=== PATIENT | male | born 1975 | race Caucasian/White ===

== ENCOUNTER 2020-07-16 12:19 | Emergency (ER) | payer OTHER ==
[~2020-07-16] VITALS: Ht 177.8 cm; Wt 68.0 kg
== END 2020-07-16 17:45 | disposition home or self-care (01) ==
LOC: ED 12:19
DX: T40.411A Poisoning by fentanyl or fentanyl analogs, accidental (unintentional), initial encounter (principal); F17.200 Nicotine dependence, unspecified, uncomplicated
CPT/HCPCS: 96374; 99284-25; J2405